=== PATIENT | male | born 1975 | race Hispanic/Latino ===

== ENCOUNTER 2019-09-26 21:17 | Emergency (ER) | payer BC, OTHER ==
[2019-09-26 22:14] LABS: RAPID GROUP A STREP NEGATIVE (NEGATIVE)
== END 2019-09-26 23:37 | disposition home or self-care (01) ==
LOC: EDH 21:17
DX: J06.9 Acute upper respiratory infection, unspecified (principal)
CPT/HCPCS: 87804; 87880